=== PATIENT | male | born 1960 | race African-American/Black ===

== ENCOUNTER 2022-02-12 12:27 | Emergency (ER) | payer MEDICAID ==
[~2022-02-12] VITALS: Ht 180.3 cm; Wt 95.0 kg
[2022-02-12 13:10] VITALS: BP 131/86
[2022-02-12] MEDS ORDERED: ALBU90AE INH (15:42)
[2022-02-12] MEDS ORDERED: PROM5SYR MT (15:42)
[2022-02-12] MEDS ORDERED: BENZ200C52 MT (17:34)
== END 2022-02-12 16:24 | disposition home or self-care (01) ==
LOC: ER 12:27
DX: U07.1 COVID-19 (principal); R05.9 Cough, unspecified; R09.81 Nasal congestion
CPT/HCPCS: 71045; 87426; 99284; C9803